=== PATIENT | male | born 1960 | race African-American/Black ===

== ENCOUNTER 2020-03-14 16:06 | Emergency (ER) | payer BC ==
--- NOTE | 2020-03-14 18:30 | ER Document Report ---
ED Medical Screen (RME) - General Chief Complaint: Leg Swelling Stated Complaint: LEGS SWELLING Primary Care Provider: EL JENNINGS MD [Primary Care Provider] - Follow up as needed Notes: Patient is a 59-year-old -[place] male with a history of type 2 diabetes who presents to the emergency department the chief complaint of swelling in the right lower extremity. He states it started recently with the right foot and has spread to involve the right lower leg below the knee. He was seen in urgent care prior to arrival, they referred him here for further evaluation. He denies any pain in the extremity. Denies any increased warmth or redness. No history of the same. Denies any chest pain or shortness of breath. No history of DVT or PE. No recent surgery, reasonable position or recent travel. No reported history of cancer or smoking. I have treated and performed a rapid initial assessment of this patient. A comprehensive ED assessment and evaluation of the patient, analysis of test results and completion of medical decision making process will be conducted by additional ED providers. PHYSICAL EXAMINATION: GENERAL: Well-appearing, well-nourished and in no acute distress. A&Ox4. Answers questions appropriately. TRAVEL OUTSIDE OF THE [place] IN LAST 30 DAYS: No Physical Exam - Vital signs Vitals: Temp Pulse Resp BP Pulse Ox 99.3 F 78 18 158/71 H 99 03/14/20 16:11 03/14/20 16:11 03/14/20 16:11 03/14/20 16:11 03/14/20 16:11 Course - Vital Signs Vital signs: Temp Pulse Resp BP Pulse Ox 99.3 F 78 18 158/71 H 99 03/14/20 16:11 03/14/20 16:11 03/14/20 16:11 03/14/20 16:11 03/14/20 16:11 Doctor's Discharge - Discharge Referrals: EL JENNINGS MD [Primary Care Provider] - Follow up as needed
--- NOTE | 2020-03-14 19:12 | RADIOLOGY REPORT (SQ) ---
EXAM DESCRIPTION: CHEST SINGLE VIEW IMAGES COMPLETED DATE/TIME: 03/14/2020 5:41 pm REASON FOR STUDY: LE edema COMPARISON: None. EXAM PARAMETERS: NUMBER OF VIEWS: One view. TECHNIQUE: Single frontal radiographic view of the chest acquired. RADIATION DOSE: NA LIMITATIONS: None. FINDINGS: LUNGS AND PLEURA: No opacities, masses or pneumothorax. No pleural effusion. MEDIASTINUM AND HILAR STRUCTURES: No masses. Contour normal. HEART AND VASCULAR STRUCTURES: Heart normal in size. Normal vasculature. BONES: No acute findings. HARDWARE: None in the chest. OTHER: No other significant finding. IMPRESSION: NO ACUTE RADIOGRAPHIC FINDING IN THE CHEST. TECHNICAL DOCUMENTATION: JOB ID: [id number] 2010 [employer]- All Rights Reserved Reading location - IP/workstation name: [email or web address]
[2020-03-14 19:16] LABS: INTERNATIONAL RATION (INR) 1.01; PROTHROMBIN TIME 13.3 SEC (11.4-15.4)
[2020-03-14 19:17] LABS: PARTIAL THROMBOPLASTIN TIME 30.8 SEC (23.5-35.8)
[2020-03-14 19:20] LABS: ABSOLUTE EOSINOPHILS # (AUTO) 0.1 10^3/uL (0.0-0.6); ABSOLUTE LYMPHOCYTES (AUTO) 1.2 10^3/uL (0.5-4.7); ABSOLUTE MONOCYTES (AUTO) 0.6 10^3/uL (0.1-1.4); ABSOLUTE NEUT (AUTO) 4.7 10^3/uL (1.7-8.2); BASOPHILS % (AUTO) 0.6 % (0-2); EOSINOPHILS % (AUTO) 1.5 % (0-6); HEMATOCRIT 37.4 % (37.9-51.0); HEMOGLOBIN 12.8 g/dL (13.5-17.0); MEAN CORPUSCULAR HGB CONC 34.3 g/dL (32.0-36.0); MEAN CORPUSCULAR VOLUME 93 fl (80-97); MONOCYTES % (AUTO) 8.7 % (3-13); RED BLOOD COUNT 4.02 10^6/uL (4.35-5.55); SEGMENTED NEUTROPHILS % (AUTO) 71.2 % (42-78); TOTAL CELLS COUNTED % (AUTO) 100 %; WHITE BLOOD COUNT 6.6 10^3/uL (4.0-10.5)
[2020-03-14 19:22] LABS: ALBUMIN 4.1 g/dL (3.5-5.0); ALKALINE PHOSPHATASE 95 U/L (38-126); ANION GAP 7 (5-19); ASPARTATE AMINO TRANSFERASE 22 U/L (17-59); BILIRUBIN,TOTAL 1.2 mg/dL (0.2-1.3); BLOOD UREA NITROGEN 10 mg/dL (7-20); CARBON DIOXIDE 29 mmol/L (22-30); CHLORIDE 104 mmol/L (98-107); CREATINE KINASE 133 U/L (55-170); GLUCOSE 101 mg/dL (75-110); POTASSIUM 4.1 mmol/L (3.6-5.0); TOTAL PROTEIN 6.7 g/dL (6.3-8.2)
[2020-03-14 19:33] LABS: NT PRO BNP 507 pg/mL (<125)
[2020-03-14 19:34] LABS: TROPONIN I < 0.012 ng/mL
--- NOTE | 2020-03-14 19:35 | EKG REPORT ---
SEVERITY:- ABNORMAL ECG - SINUS RHYTHM FIRST DEGREE AV BLOCK PROBABLE LEFT ATRIAL ABNORMALITY : Confirmed by: Duncan Larkin 14-Mar-2020 19:35:08
--- NOTE | 2020-03-14 19:53 | RADIOLOGY REPORT (SQ) ---
EXAM DESCRIPTION: VENOUS UNILATERAL LOWER IMAGES COMPLETED DATE/TIME: 03/14/2020 7:30 pm REASON FOR STUDY: RLE swelling COMPARISON: None. TECHNIQUE: Dynamic and static durand scale and color images acquired of the right leg venous system. S elected spectral images acquired with additional compression and augmentation maneuvers. The contrala teral common femoral vein and saphenofemoral junction were also imaged. Images stored on PACS. LIMITATIONS: None. FINDINGS: COMMON FEMORAL: Normal phasicity, compression and augmentation. No visualized echogenic ma terial on durand scale. No defects on color images. FEMORAL: Normal compression and augmentation. No visualized echogenic material on durand scale. No defe cts on color images. POPLITEAL: Normal compression, augmentation. No visualized echogenic material on durand scale. No defec ts on color images. CALF VESSELS: Normal compression, augmentation. No visualized echogenic material on durand scale. No de fects on color images. GSV and SSV: Normal compression, augmentation. No visualized echogenic material on durand scale. No def ects on color images. ANY DEEP VENOUS INSUFFICIENCY: Not evaluated. ANY EVIDENCE OF POPLITEAL CYST: No. OTHER: No other significant finding. CONTRALATERAL COMMON FEMORAL VEIN AND SAPHENOFEMORAL JUNCTION: Normal phasicity, compression and augmentation. No visualized echogenic material on durand scale. No de fects on color images. IMPRESSION: NO EVIDENCE DVT OR SVT IN THE RIGHT LEG. TECHNICAL DOCUMENTATION: JOB ID: [id number] 2010 [employer]- All Rights Reserved Reading location - IP/workstation name: [email or web address]
[2020-03-14 20:21] LABS: PLATELET COUNT 94 10^3/uL (150-450)
[2020-03-15] MEDS ORDERED: OXYCODONE-ACETAMINOPHEN 5-325 MG TABLET PO ONE (02:14)
--- NOTE | 2020-03-15 02:19 | ER Document Report ---
ED General - General Chief Complaint: Leg Swelling Stated Complaint: LEGS SWELLING Time Seen by Provider: 03/15/20 01:52 Primary Care Provider: EL JENNINGS MD [Primary Care Provider] - Follow up as needed TRAVEL OUTSIDE OF THE [place] IN LAST 30 DAYS: No - HPI Notes: Patient is a 59-year-old male who presents to the emergency department for evaluation of right foot, leg, ankle pain and swelling. He states about a week ago he started using his stationary bike again. A few days later he developed pain in the top of his foot, medial aspect of his foot. Over the next several days he progressed to significant swelling. He states his pain is worsened with weightbearing, nothing seems to make it better. He denies any chest pain, shortness of breath. No orthopnea. No history of heart disease. He has had a stress test in the past. - Related Data Allergies/Adverse Reactions: No Known Allergies Allergy (Verified 03/15/20 02:18) Home Medications: None Past Medical History - General Information source: Patient - Social History Smoking Status: Former Smoker Family History: CAD - Father passed from [place] in his early 50s Endocrine Medical History: Reports: Hx Diabetes Mellitus Type 2 - Currently controlled with diet and exercise Review of Systems - Review of Systems Musculoskeletal: See HPI -: Yes All other systems reviewed and negative Physical Exam - Vital signs Vitals: Temp Pulse Resp BP Pulse Ox 99.3 F 78 18 158/71 H 99 03/14/20 16:11 03/14/20 16:11 03/14/20 16:11 03/14/20 16:11 03/14/20 16:11 - Notes Notes: Is a pleasant 59-year-old male who appears his stated age, in no acute distress. Vital signs reviewed, please refer to chart. Head is normocephalic, atraumatic. Pupils equal round, reactive to light. Neck is supple without meningismus. Heart is regular rate and rhythm. Lungs are clear to auscultation bilaterally. Abdomen is soft, nontender, normoactive bowel sounds throughout. Examination of the right lower extremity yields 1+ pitting edema to the thigh on the right lower extremity. He has no posterior calf tenderness. Negative Homans and Price. Neurovascularly intact distally. Patient has no fibular head tenderness, no fifth metatarsal head tenderness. He is tender over the anterior talus, mildly over the navicular medially, as well as the cuneiform. Sensation is intact distally. Dorsalis pedis pulse easily palpable. Course - Re-evaluation Re-evalutation: 03/15/20 02:18 Patient presents the emergency department for evaluation. He was initially seen through triage. He had a congestive heart failure work-up as well as Doppler. Doppler is finally negative. Chest x-ray shows no signs of fluid overload. He has a mildly elevated proBNP, this is likely secondary to obesity. He is not showing me symmetrical swelling of the lower extremities, and I am not overly concerned about the possibility of heart failure. His venous Doppler was negative. I am concerned, however, about the possibility of stress fracture or other injury causing this patient's pain and swelling. X-ray of the foot and ankle are ordered. Patient administered Percocet. He is stable, awaiting x- rays. 03/15/20 03:37 X-ray interpreted by myself as showing nothing acute, but I explained to the patient that it still needs evaluated by radiology. The patient has had an extensive stay in the emergency department and would like to go home. I think this is reasonable. I explained to him that it is very important that he follow-up with Dr. Jennings on Tuesday. He may need a repeat Doppler. He certainly needs to discuss the fact that the radiology read needs to be reviewed. He is to treated like a fracture with complete nonweightbearing until then. He voiced understanding to this. Otherwise I will send him home with stronger pain medication and close follow-up. He is to return to the ED with worsening. - Vital Signs Vital signs: Temp Pulse Resp BP Pulse Ox 98.5 F 68 16 133/75 H 96 03/15/20 03:54 03/15/20 03:54 03/15/20 03:54 03/15/20 03:54 03/15/20 03:54 - Laboratory Result Diagrams: 03/14/20 18:55 03/14/20 18:55 Laboratory results interpreted by me: 03/14/20 03/14/20 18:55 18:55 RBC 4.02 L Hgb 12.8 L Hct 37.4 L RDW 15.0 H Plt Count 94 L NT-Pro-B Natriuret Pep 507 H - Diagnostic Test Radiology reviewed: Image reviewed, Reports reviewed Radiology results interpreted by me: 03/15/20 03:37 Venous Doppler Study 03/14/20 18:27 IMPRESSION: NO EVIDENCE DVT OR SVT IN THE RIGHT LEG. Chest X-Ray 03/14/20 18:28 IMPRESSION: NO ACUTE RADIOGRAPHIC FINDING IN THE CHEST. X-ray of the foot and ankle interpreted by myself, without the aid of a radiologist, as showing no acute fractures. - EKG Interpretation by Me Additional EKG results interpreted by me: 03/15/20 02:19 Sinus mechanism with rate of 63 bpm. Normal axis. First-degree AV block. No acute ST changes concerning for ischemia or infarction. No old studies available for immediate comparison. Discharge - Discharge Clinical Impression: Pain and swelling of right lower leg Condition: Stable Disposition: HOME, SELF-CARE Instructions: Leg Pain Nonspecific ([facility]), Possible Evolving Leg DVT ([facility]) Additional Instructions: Your blood work here was largely unremarkable. You had a ultrasound which did not show any signs of blood clot. You had x-rays which were interpreted by the ED physician, and the radiology read is still pending. It is very important that you follow-up with Dr. Jennings, and that the official read by the radiologist is reviewed. Until then, use crutches for ambulation. No weightbearing. If you develop increased pain, swelling, chest pain, shortness of breath, or any other new or concerning symptoms, please return immediately to the emergency department for evaluation. Otherwise, [place] as needed for severe pain. Watch for dizziness, drowsiness, constipation with this medication. Prescriptions: Oxycodone HCl/Acetaminophen [Percocet 5-325 mg Tablet] 1 tab PO Q6HP PRN #8 tablet PRN Reason: Referrals: EL JENNINGS MD [Primary Care Provider] - Follow up as needed
[2020-03-15] MEDS ORDERED: HYDROCODONE/ACETAMINOPHEN 5-325 MG (6 TAB/ER DISP) PO PRN (03:41)
--- NOTE | 2020-03-15 03:54 | RADIOLOGY REPORT (SQ) ---
EXAM DESCRIPTION: XR FOOT 3 OR MORE VIEWS, XR ANKLE 3 OR MORE VIEWS COMPLETED DATE/TME: 03/15/2020 02:13 CLINICAL HISTORY: 59 years, Male, pain and swelling COMPARISON: None. NUMBER OF VIEWS: 3 views of the right foot and 3 views of the right ankle TECHNIQUE: 3 views of the right foot and ankle LIMITATIONS: None. FINDINGS: Right foot: Small calcaneal spurs. Diffuse soft tissue swelling. Negative for acute fracture or dislocation. No soft tissue gas. Right ankle: Small calcaneal spurs. Negative for acute fracture or dislocation. Ankle mortise is intact. Mild soft tissue swelling IMPRESSION: Soft tissue swelling of the foot and ankle. No acute fracture copyright 2010 [employer]- All Rights Reserved
[2020-03-15 03:58] VITALS: BP 133/75
== END 2020-03-15 03:58 | disposition home or self-care (01) ==
LOC: ER 16:06
DX: M79.604 Pain in right leg (principal); M79.89 Other specified soft tissue disorders; M79.671 Pain in right foot; M25.571 Pain in right ankle and joints of right foot; Z87.891 Personal history of nicotine dependence; E11.9 Type 2 diabetes mellitus without complications
CPT/HCPCS: 36415; 71045; 80053; 82550; 83880; 84484; 85025; 85610; 85730; 93005; 93010; 93971; 99284

== ENCOUNTER → 2020-03-20 | Outpatient (CLI) | payer BC ==
--- NOTE | 2020-03-20 16:01 | RADIOLOGY REPORT (SQ) ---
EXAM DESCRIPTION: MRI RT LOWER JOINT WITHOUT IMAGES COMPLETED DATE/TIME: 03/20/2020 10:20 am REASON FOR STUDY: M25.571 PAIN IN RIGHT ANKLE AND JOINTS OF RIGHT FOOT M25.571 PAIN IN RIGHT ANKLE AND JOINTS OF RIGHT FOOT COMPARISON: 03/15/2020 TECHNIQUE: Right ankle images acquired and stored on PACS. Multiplanar images include fat sensitive sequences as T1, fluid sensitive sequences as FST2/STIR, cartilage sensitive sequences as FSPD, and g radient echo sequences. LIMITATIONS: None. FINDINGS: BONE MARROW: A tiny focus of subcortical marrow edema is seen of the tibial plafond. No i nfiltrative marrow process. . No occult fracture. No large osteophytes. EFFUSIONS: A tiny tibiotalar joint effusion is present. No intraarticular bodies are demonstrated. OSSEOUS ARTICULATIONS: Mild degenerative changes are seen of the subtalar joint. Articular alignment is maintained. TALAR DOME AND TIBIAL PLAFOND: Focal cartilaginous injury is seen of the mid tibial plafond with subc ortical marrow edema. The remaining articular cartilage demonstrates normal thickness and signal. T he talar dome remains intact. ACHILLES TENDON: Intact without partial or full-thickness tear. No adjacent bursal fluid or edema. TIBIALIS ANTERIOR TENDON: Intact without edema at the 1st MT attachment. TIBIALIS POSTERIOR TENDON: Mild fluid is seen within the tendon sheath. Tendon caliber, signal, and attachment are otherwise maintained. FLEXOR HALLUCIS LONGUS AND FLEXOR DIGITORUM TENDONS: While a small amount of fluid about the flexor h allucis longus tendon may be physiologic, tendon sheath fluid extends to the plantar segments. Calib er, signal, and attachment are otherwise normal. The flexor digitorum longus demonstrates normal domenico iber, signal, and attachment without tendon sheath fluid. PERONEUS LONGUS AND BREVIS TENDON: Trace fluid is seen about the peroneus longus and peroneus brevis tendons as a course along the distal fibula. The tendons otherwise demonstrate normal caliber, signa l, and attachment. ATFL, CFL, PTFL: Intact. No thickening or signal alteration. No fer-ligamentous fluid. DELTOID LIGAMENT: Visualized components intact. TARSAL TUNNEL: No masses. No muscle atrophy. Trace fluid is present. SINUS TARSI: No fluid. No reactive marrow edema or erosions. PLANTAR FASCIA: The lateral fibers at the origin on the calcaneus appear mildly thickened and heterog eneous. No focal fluid collections or tear are demonstrated. ADJACENT SOFT TISSUES: No masses. OTHER: No other significant finding. IMPRESSION: 1. Mild degenerative changes of the tibiotalar joint with focal subcortical marrow horacio a involving the central tibial plafond. Small joint effusion. 2. Tenosynovitis of the tibialis posterior and flexor hallucis longus tendons more so than the peron eus brevis and longus tendons. 3. Mild degenerative changes of the subtalar joint with small joint effusion. 4. Subtle findings suggest an element of chronic plantar fasciitis. TECHNICAL DOCUMENTATION: JOB ID: [id number] 2010 [employer]- All Rights Reserved Reading location - IP/workstation name: [email or web address]
== END ==
LOC: RAD 09:20
PROVIDERS: ATTEND Internal Medicine
DX: M65.871 Other synovitis and tenosynovitis, right ankle and foot (principal); M19.071 Primary osteoarthritis, right ankle and foot; M25.471 Effusion, right ankle